=== PATIENT | female | born 1955 | race Caucasian/White ===

== ENCOUNTER 2018-11-21 12:30 | Inpatient (IN) | payer MEDICAID ==
[~2018-11-21] VITALS: Ht 157.5 cm; Wt 152.0 kg
[2018-11-21] MEDS ORDERED: SODIUM CHLORIDE 0.9% 1,000 ML IV ONE (19:12)
[2018-11-21] MEDS ORDERED: ONDANSETRON HCL 4MG/2ML INJ IV STA (19:12)
[2018-11-21] MEDS ORDERED: LEVOFLOXACIN 750MG PREMIX 150 ML IV ONE (19:15)
[2018-11-21] MEDS ORDERED: VANCOMYCIN 1 G PREMIX 200 ML IV ONE (19:15)
[2018-11-21] MEDS ORDERED: HYDROCODONE/ACETAMINOPHEN 10/325MG TABLET PO ONE (19:15)
[2018-11-21 20:08] LABS: BASOPHILS % 0.2 % (0.0-2.0); EOSINOPHILS % 0.7 % (0.0-5.0); HEMATOCRIT. 38.9 % (36.0-48.0); HEMOGLOBIN. 12.9 g/dL (12.0-16.0); LYMPHOCYTES % 15.1 % (20.0-50.0); MEAN CORPUSCULAR HEMOGLOBIN 29.5 pg (28.0-32.0); MEAN CORPUSCULAR VOLUME 88.8 fL (81.0-99.0); MONOCYTES % 8.7 % (2.0-8.0); NEUTROPHILS % 75.3 % (40.0-76.0); PLATELET 217 x1000/uL (130-400); RED BLOOD CELL COUNT 4.38 mill/uL (4.2-5.4); RED CELL DISTRIBUTION WIDTH 15.4 % (11.6-14.6)
[2018-11-21 20:12] LABS: CHLORIDE 107 mEq/L (98-107)
[2018-11-21 20:13] LABS: INR 1.1; PROTHROMBIN TIME 10.7 sec (9.1-11.1)
[2018-11-21] MEDS ORDERED: DIPHENHYDRAMINE 50MG/ML VIAL IV PRN (21:30)
[2018-11-21] MEDS ORDERED: ACETAMINOPHEN 650MG/20.3ML UDC GT PRN (21:30)
[2018-11-21] MEDS ORDERED: ACETAMINOPHEN 325MG TABLET PO PRN (21:30)
[2018-11-21] MEDS ORDERED: DOCUSATE SODIUM 100MG CAPSULE PO PRN (21:30)
[2018-11-21] MEDS ORDERED: ONDANSETRON HCL 4MG/2ML INJ IV PRN (21:30)
[2018-11-21] MEDS ORDERED: GUAIFENESIN 200MG/10ML SUGAR FREE UDC PO PRN (21:30)
[2018-11-21] MEDS ORDERED: ACETAMINOPHEN 650MG SUPP PR PRN (21:30)
[2018-11-21] MEDS ORDERED: NA PHOS,M-B/NA PHOS,DI-BA ENEMA 118ML PR PRN (21:30)
[2018-11-21] MEDS ORDERED: IPRATROPIUM/ALBUTEROL 0.5-3(2.5)MG/3ML NEB INH PRN (21:30)
[2018-11-21] MEDS ORDERED: DEXTROSE 50% WATER 50ML SYRINGE IV PRN (21:30)
[2018-11-21] MEDS ORDERED: CLONIDINE 0.1MG TABLET PO PRN (21:30)
[2018-11-21] MEDS ORDERED: CEFTRIAXONE 1 G PREMIX 50 ML IV SCH (21:30)
[2018-11-21] MEDS ORDERED: HYDROCODONE/ACETAMINOPHEN 5/325MG TABLET PO PRN (21:30)
[2018-11-21 21:46] LABS: CLARITY URINE TURBID (CLEAR); COLOR URINE DARK YELLOW (YELLOW); KETONES URINE TRACE (NEGATIVE); LEUKOCYTE ESTERASE URINE 3+ (NEGATIVE); NITRITE URINE POSITIVE (NEGATIVE); OCCULT BLOOD URINE 1+ (NEGATIVE); PROTEIN URINE TRACE (NEGATIVE); UROBILINOGEN URINE 0.2 E.U./dL (0.2-1.0)
[2018-11-21 22:01] LABS: *AMPHETAMINES SCREEN URINE NEGATIVE (NEGATIVE); *BARBITURATES SCREEN URINE NEGATIVE (NEGATIVE); *BENZODIAZEPINES SCREEN URINE NEGATIVE (NEGATIVE); *COCAINE SCREEN URINE NEGATIVE (NEGATIVE)
[2018-11-21 22:02] LABS: CANNABINOID URINE SCREEN NEGATIVE (NEGATIVE); METHADONE URINE SCREEN NEGATIVE (NEGATIVE); OPIATES URINE SCREEN NEGATIVE (NEGATIVE); PHENCYCLIDINE URINE SCREEN NEGATIVE (NEGATIVE)
[2018-11-22] VITALS: BP 96/45
[2018-11-22] MEDS: HYDROCODONE/ACETAMINOPHEN 10/325MG TABLET PO PRN ×2 (00:32→11:10)
[2018-11-22] MEDS ORDERED: ATOR10TA69 MT (03:07)
[2018-11-22] MEDS ORDERED: INSU100I28 SQ (03:07)
[2018-11-22] MEDS ORDERED: LISI2.5T47 MT (03:07)
[2018-11-22] MEDS ORDERED: METF-416 MT (03:07)
[2018-11-22] MEDS ORDERED: FURO20TA4 MT (03:07)
[2018-11-22 03:08] VITALS: BP 96/45
[2018-11-22] MEDS: SODIUM CHLORIDE 0.9% INJ 3ML FLUSH IVF SCH ×3 (05:46→22:41)
[2018-11-22] MEDS: VANCOMYCIN 1250MG in DEXTROSE 5% WATER 250ML IV SCH (05:47)
[2018-11-22] MEDS: BLOOD SUGAR DIAGNOSTIC STRIP TEST SCH ×4 (07:08→20:48)
[2018-11-22 07:29] LABS: BASOPHILS % 0.2 % (0.0-2.0); EOSINOPHILS % 1.4 % (0.0-5.0); HEMOGLOBIN. 11.8 g/dL (12.0-16.0); LYMPHOCYTES % 22.3 % (20.0-50.0); MEAN CORPUSCULAR HEMOGLOBIN 29.3 pg (28.0-32.0); MEAN CORPUSCULAR VOLUME 89.2 fL (81.0-99.0); MONOCYTES % 12.1 % (2.0-8.0); PLATELET 193 x1000/uL (130-400); RED BLOOD CELL COUNT 4.03 mill/uL (4.2-5.4); RED CELL DISTRIBUTION WIDTH 15.2 % (11.6-14.6)
[2018-11-22 07:47] LABS: CHLORIDE 102 mEq/L (98-107)
[2018-11-22] MEDS ORDERED: CHOL200074 MT (07:49)
[2018-11-22 08:00] VITALS: BP 109/57
[2018-11-22 08:00] LABS: LDL CHOLESTEROL 34 mg/dL (5-100)
[2018-11-22 08:03] LABS: HDL CHOLESTEROL 36 mg/dL (40-59)
[2018-11-22] MEDS: ENOXAPARIN 40MG/0.4ML SYR SUBCUT SCH ×2 (09:01→20:48)
[2018-11-22] MEDS: INSULIN LISPRO 100 UNITS/ML SUBCUT SCH ×5 (09:09→21:00)
[2018-11-22] MEDS ORDERED: *CEFTRIAXONE XX SCH (11:00)
[2018-11-22 12:27] VITALS: BP 105/59
[2018-11-22] MEDS: CEFTRIAXONE 1 G PREMIX 50 ML IV SCH (13:24)
[2018-11-22] MEDS: FUROSEMIDE 40MG TABLET PO SCH (14:45)
[2018-11-22] MEDS: ALLOPURINOL 100 MG TABLET PO SCH (17:52)
[2018-11-22 18:00] VITALS: BP 96/50
[2018-11-22 20:00] VITALS: BP 123/77
[2018-11-22] MEDS: BACITRACIN 15GM TUBE TOP SCH ×2 (21:30→22:42)
[2018-11-23] VITALS: BP 136/72
[2018-11-23] MEDS: VANCOMYCIN 1250MG in DEXTROSE 5% WATER 250ML IV SCH ×4 (00:39→14:49)
[2018-11-23] MEDS: HYDROCODONE/ACETAMINOPHEN 10/325MG TABLET PO PRN ×2 (00:46→09:11)
[2018-11-23 04:00] VITALS: BP 116/48
[2018-11-23] MEDS: BLOOD SUGAR DIAGNOSTIC STRIP TEST SCH ×4 (06:53→21:50)
[2018-11-23] MEDS: SODIUM CHLORIDE 0.9% INJ 3ML FLUSH IVF SCH ×3 (06:53→21:54)
[2018-11-23 08:00] VITALS: BP 130/74
[2018-11-23] MEDS: FUROSEMIDE 40MG TABLET PO SCH (08:07)
[2018-11-23] MEDS: ALLOPURINOL 100 MG TABLET PO SCH (08:07)
[2018-11-23] MEDS: ENOXAPARIN 40MG/0.4ML SYR SUBCUT SCH ×2 (08:08→21:54)
[2018-11-23] MEDS: INSULIN LISPRO 100 UNITS/ML SUBCUT SCH ×4 (09:07→22:20)
[2018-11-23 12:00] VITALS: BP 138/76
[2018-11-23 12:15] LABS: BASOPHILS % 0.1 % (0.0-2.0); HEMATOCRIT. 37.7 % (36.0-48.0); HEMOGLOBIN. 12.3 g/dL (12.0-16.0); LYMPHOCYTES % 17.6 % (20.0-50.0); MEAN CORPUSCULAR HEMOGLOBIN 29.1 pg (28.0-32.0); MEAN PLATELET VOLUME 8.2 fl (7.4-10.4); NEUTROPHILS % 71.3 % (40.0-76.0); PLATELET 211 x1000/uL (130-400); RED BLOOD CELL COUNT 4.23 mill/uL (4.2-5.4); RED CELL DISTRIBUTION WIDTH 15.2 % (11.6-14.6)
[2018-11-23 12:26] LABS: CHLORIDE 98 mEq/L (98-107)
[2018-11-23 16:00] VITALS: BP 132/78
[2018-11-23] MEDS: BACITRACIN 15GM TUBE TOP SCH (16:20)
[2018-11-23 20:00] VITALS: BP 99/56
[2018-11-23] MEDS: MAGNESIUM/ALUMINUM HYDROXIDE/SIMETHICONE 30ML UDC PO PRN (21:42)
[2018-11-24] VITALS: BP 117/57
[2018-11-24 05:04] LABS: VANCOMYCIN TROUGH 6.4 ug/mL (5.0-10.0)
[2018-11-24] MEDS: VANCOMYCIN 1250MG in DEXTROSE 5% WATER 250ML IV SCH (06:39)
[2018-11-24] MEDS: SODIUM CHLORIDE 0.9% INJ 3ML FLUSH IVF SCH ×2 (06:55→14:00)
[2018-11-24] MEDS: BLOOD SUGAR DIAGNOSTIC STRIP TEST SCH ×4 (07:51→21:00)
[2018-11-24 08:00] VITALS: BP 102/50
[2018-11-24] MEDS: FUROSEMIDE 40MG TABLET PO SCH (08:30)
[2018-11-24] MEDS: ALLOPURINOL 100 MG TABLET PO SCH (08:51)
[2018-11-24] MEDS: ENOXAPARIN 40MG/0.4ML SYR SUBCUT SCH (08:51)
[2018-11-24] MEDS: INSULIN LISPRO 100 UNITS/ML SUBCUT SCH ×3 (09:00→19:32)
[2018-11-24] MEDS ORDERED: BISACODYL 10MG SUPP PR PRN (11:45)
[2018-11-24] MEDS ORDERED: ONDANSETRON HCL 4MG/2ML INJ IV PRN (11:45)
[2018-11-24] MEDS ORDERED: BISACODYL 5MG TABLET PO PRN (11:45)
[2018-11-24 12:00] VITALS: BP 104/73
[2018-11-24] MEDS: CEFTRIAXONE 1 G PREMIX 50 ML IV SCH (14:26)
[2018-11-24] MEDS: MAGNESIUM/ALUMINUM HYDROXIDE/SIMETHICONE 30ML UDC PO PRN (14:49)
[2018-11-24] MEDS: METOCLOPRAMIDE HCL 10MG/2ML VIAL IV SCH (18:00)
[2018-11-24 20:00] VITALS: BP 110/51
[2018-11-24] MEDS: HYDROCODONE/ACETAMINOPHEN 10/325MG TABLET PO PRN (21:25)
[2018-11-24] MEDS ORDERED: SODIUM CHLORIDE 0.45% 1,000 ML IV SCH (22:30)
[2018-11-25] VITALS: BP 127/70
[2018-11-25] MEDS: PANTOPRAZOLE SODIUM 40 MG/VIAL IV SCH ×2 (00:38→12:30)
[2018-11-25] MEDS: METOCLOPRAMIDE HCL 10MG/2ML VIAL IV SCH ×3 (00:38→12:30)
[2018-11-25] MEDS: SODIUM CHLORIDE 0.9% INJ 3ML FLUSH IVF SCH ×3 (00:39→22:00)
[2018-11-25] MEDS: INSULIN LISPRO 100 UNITS/ML SUBCUT SCH ×5 (00:54→22:36)
[2018-11-25] MEDS: VANCOMYCIN 1250MG in DEXTROSE 5% WATER 250ML IV SCH ×2 (01:03→06:12)
[2018-11-25 04:00] VITALS: BP 113/60
[2018-11-25] MEDS: BLOOD SUGAR DIAGNOSTIC STRIP TEST SCH ×3 (06:12→21:00)
[2018-11-25] MEDS: HYDROCODONE/ACETAMINOPHEN 10/325MG TABLET PO PRN ×2 (06:31→12:38)
[2018-11-25] MEDS: ALBUTEROL (0.083%) 2.5MG/3ML NEB HHN SCH ×3 (07:40→22:45)
[2018-11-25 08:00] VITALS: BP 121/68
[2018-11-25] MEDS: FUROSEMIDE 40MG TABLET PO SCH (09:13)
[2018-11-25] MEDS: ENOXAPARIN 40MG/0.4ML SYR SUBCUT SCH ×3 (09:13→22:15)
[2018-11-25 12:00] VITALS: BP 122/77
[2018-11-25] MEDS: ALLOPURINOL 100 MG TABLET PO SCH (12:30)
[2018-11-25] MEDS: CEFTRIAXONE 1 G PREMIX 50 ML IV SCH (12:30)
[2018-11-25] MEDS ORDERED: CEFTRIAXONE 2 G PREMIX 50 ML IV SCH (12:45)
[2018-11-25 20:00] VITALS: BP 133/61
[2018-11-25] MEDS ORDERED: VANCOMYCIN 1250MG in DEXTROSE 5% WATER 250ML IV SCH (21:00)
[2018-11-25] MEDS ORDERED: CEFTRIAXONE 2 G in DEXTROSE 5% WATER 50 ML IV SCH (21:00)
[2018-11-25] MEDS ORDERED: CEFTRIAXONE 2 G in DEXTROSE 5% WATER 50 ML IV NR (23:30)
[2018-11-26] VITALS: BP 121/63
[2018-11-26] MEDS: METOCLOPRAMIDE HCL 10MG/2ML VIAL IV SCH ×5 (01:30→23:42)
[2018-11-26] MEDS: ALBUTEROL (0.083%) 2.5MG/3ML NEB HHN SCH ×4 (02:50→19:00)
[2018-11-26 04:00] VITALS: BP 113/57
[2018-11-26] MEDS: SODIUM CHLORIDE 0.9% INJ 3ML FLUSH IVF SCH ×3 (06:00→23:38)
[2018-11-26] MEDS: BLOOD SUGAR DIAGNOSTIC STRIP TEST SCH ×4 (06:54→21:00)
[2018-11-26 08:00] VITALS: BP 116/68
[2018-11-26] MEDS: ALLOPURINOL 100 MG TABLET PO SCH (08:55)
[2018-11-26] MEDS: ENOXAPARIN 40MG/0.4ML SYR SUBCUT SCH ×2 (08:55→23:37)
[2018-11-26] MEDS: FAMOTIDINE 20MG/2ML VIAL IV SCH ×2 (08:56→23:37)
[2018-11-26] MEDS: FUROSEMIDE 40MG TABLET PO SCH (08:56)
[2018-11-26] MEDS: INSULIN LISPRO 100 UNITS/ML SUBCUT SCH ×3 (08:58→18:04)
[2018-11-26] MEDS: BACITRACIN 15GM TUBE TOP SCH ×2 (09:08→09:09)
[2018-11-26] MEDS: LEVOFLOXACIN 750MG PREMIX 150 ML IV SCH (10:38)
[2018-11-26 12:00] VITALS: BP 121/67
[2018-11-26 16:00] VITALS: BP 120/73
[2018-11-26 20:00] VITALS: BP 99/53
[2018-11-26] MEDS ORDERED: CEFTRIAXONE 2 G in DEXTROSE 5% WATER 50 ML IV SCH (21:00)
[2018-11-26 22:36] LABS: BASOPHILS % 0.3 % (0.0-2.0); EOSINOPHILS % 2.9 % (0.0-5.0); HEMATOCRIT. 37.8 % (36.0-48.0); HEMOGLOBIN. 12.4 g/dL (12.0-16.0); LYMPHOCYTES % 16.3 % (20.0-50.0); MEAN CORPUSCULAR HEMOGLOBIN 29.1 pg (28.0-32.0); MEAN CORPUSCULAR VOLUME 88.7 fL (81.0-99.0); MONOCYTES % 9.8 % (2.0-8.0); NEUTROPHILS % 70.7 % (40.0-76.0); PLATELET 260 x1000/uL (130-400); RED BLOOD CELL COUNT 4.27 mill/uL (4.2-5.4); RED CELL DISTRIBUTION WIDTH 14.6 % (11.6-14.6)
[2018-11-26 22:48] LABS: CHLORIDE 99 mEq/L (98-107)
[2018-11-27] VITALS (7 sets, daily range): BP systolic 100–122; BP diastolic 52–67
[2018-11-27] MEDS: INSULIN LISPRO 100 UNITS/ML SUBCUT SCH ×3 (00:01→14:08)
[2018-11-27] MEDS: ALBUTEROL (0.083%) 2.5MG/3ML NEB HHN SCH (03:00)
[2018-11-27] MEDS: METOCLOPRAMIDE HCL 10MG/2ML VIAL IV SCH ×2 (07:05→14:08)
[2018-11-27] MEDS: BLOOD SUGAR DIAGNOSTIC STRIP TEST SCH ×2 (07:05→12:00)
[2018-11-27] MEDS: FUROSEMIDE 40MG TABLET PO SCH (08:53)
[2018-11-27] MEDS: ALLOPURINOL 100 MG TABLET PO SCH (08:53)
[2018-11-27] MEDS: FAMOTIDINE 20MG/2ML VIAL IV SCH (08:53)
[2018-11-27] MEDS: LEVOFLOXACIN 750MG PREMIX 150 ML IV SCH (08:54)
[2018-11-27] MEDS: BACITRACIN 15GM TUBE TOP SCH (09:00)
[2018-11-27] MEDS: ENOXAPARIN 40MG/0.4ML SYR SUBCUT SCH (09:00)
[2018-11-27] MEDS ORDERED: FURO-151 MT (12:42)
[2018-11-27] MEDS: SODIUM CHLORIDE 0.9% INJ 3ML FLUSH IVF SCH ×2 (14:00→14:09)
== END 2018-11-27 18:33 | disposition home or self-care (01) | DRG 197 ==
LOC: ER 12:30 → 6EST 21:15 → EDBEDREQ 21:17 → ENRESERV 21:25
PROVIDERS: ADMIT Family Medicine; ATTEND Family Medicine
PROC: 0JBR0ZZ Excision of Left Foot Subcutaneous Tissue and Fascia, Open Approach (ICD-10-PCS; principal; 2018-11-25)
PROC: 0JBQ0ZZ Excision of Right Foot Subcutaneous Tissue and Fascia, Open Approach (ICD-10-PCS; 2018-11-25)
DX: I83.018 Varicose veins of right lower extremity with ulcer other part of lower leg (principal); E11.51 Type 2 diabetes mellitus with diabetic peripheral angiopathy without gangrene; E11.43 Type 2 diabetes mellitus with diabetic autonomic (poly)neuropathy; I27.20 Pulmonary hypertension, unspecified; E66.01 Morbid (severe) obesity due to excess calories; L03.115 Cellulitis of right lower limb; B95.61 Methicillin susceptible Staphylococcus aureus infection as the cause of diseases classified elsewhere; B96.5 Pseudomonas (aeruginosa) (mallei) (pseudomallei) as the cause of diseases classified elsewhere; I10 Essential (primary) hypertension; R60.0 Localized edema; R26.81 Unsteadiness on feet; N39.0 Urinary tract infection, site not specified; I87.8 Other specified disorders of veins; M10.9 Gout, unspecified; Z88.0 Allergy status to penicillin; Z68.44 Body mass index [BMI] 60.0-69.9, adult; Z79.84 Long term (current) use of oral hypoglycemic drugs; Z79.899 Other long term (current) drug therapy; I83.028 Varicose veins of left lower extremity with ulcer other part of lower leg
CPT/HCPCS: 36415; 71045; 73590; 74018; 74176; 80048; 80061; 80202; 80305; 82962; 83605; 83970; 84145; 84443; 84484; 84550; 87070; 87077; 87186; 93005; 93923; 93970; 96365; 96366; 96368; 96375; 97162; 97530; 99285; A6261; C1893; C9113; J0696; J1200; J1650; J1815; J1956; J2405; J2765; J3370; J3490; J7030; J7060; J7611

== ENCOUNTER 2018-11-28 13:29 | Inpatient (IN) | payer MEDICAID ==
[~2018-11-28] VITALS: Ht 165.1 cm; Wt 149.2 kg
[~2018-11-28 13:29] MED LIST: ATOR10TA69 MT; CHOL200074 MT; FURO-151 MT; INSU100I28 SQ; LISI2.5T47 MT; METF-416 MT
[2018-11-28 17:11] LABS: BASOPHILS % 0.2 % (0.0-2.0); EOSINOPHILS % 1.5 % (0.0-5.0); HEMATOCRIT. 39.5 % (36.0-48.0); LYMPHOCYTES % 11.4 % (20.0-50.0); MEAN CORPUSCULAR HEMOGLOBIN 28.9 pg (28.0-32.0); MEAN CORPUSCULAR VOLUME 88.1 fL (81.0-99.0); MEAN PLATELET VOLUME 8.4 fl (7.4-10.4); MONOCYTES % 8.4 % (2.0-8.0); NEUTROPHILS % 78.5 % (40.0-76.0); PLATELET 312 x1000/uL (130-400); RED BLOOD CELL COUNT 4.48 mill/uL (4.2-5.4)
[2018-11-28 17:16] LABS: CHLORIDE 98 mEq/L (98-107)
[2018-11-28 17:26] LABS: INR 1.1
[2018-11-28] MEDS ORDERED: DEXTROSE 50% WATER 50ML SYRINGE IV PRN (19:30)
[2018-11-28 20:00] VITALS: BP 98/64
[2018-11-28] MEDS ORDERED: ACETAMINOPHEN 650MG/20.3ML UDC GT PRN (20:00)
[2018-11-28] MEDS ORDERED: IPRATROPIUM/ALBUTEROL 0.5-3(2.5)MG/3ML NEB INH PRN (20:00)
[2018-11-28] MEDS ORDERED: CLONIDINE 0.1MG TABLET PO PRN (20:00)
[2018-11-28] MEDS ORDERED: NA PHOS,M-B/NA PHOS,DI-BA ENEMA 118ML PR PRN (20:00)
[2018-11-28] MEDS ORDERED: DOCUSATE SODIUM 100MG CAPSULE PO PRN (20:00)
[2018-11-28] MEDS ORDERED: DIPHENHYDRAMINE 50MG/ML VIAL IV PRN (20:00)
[2018-11-28] MEDS ORDERED: ACETAMINOPHEN 650MG SUPP PR PRN (20:00)
[2018-11-28] MEDS ORDERED: ONDANSETRON HCL 4MG/2ML INJ IV PRN (20:00)
[2018-11-28] MEDS ORDERED: GUAIFENESIN 200MG/10ML SUGAR FREE UDC PO PRN (20:00)
[2018-11-28 20:39] LABS: CLARITY URINE CLEAR (CLEAR); COLOR URINE YELLOW (YELLOW); KETONES URINE NEGATIVE (NEGATIVE); LEUKOCYTE ESTERASE URINE TRACE (NEGATIVE); NITRITE URINE NEGATIVE (NEGATIVE); OCCULT BLOOD URINE NEGATIVE (NEGATIVE); PROTEIN URINE NEGATIVE (NEGATIVE); SPECIFIC GRAVITY URINE 1.017 (1.005-1.030); UROBILINOGEN URINE 0.2 E.U./dL (0.2-1.0)
[2018-11-28 20:53] LABS: *BENZODIAZEPINES SCREEN URINE NEGATIVE (NEGATIVE); *COCAINE SCREEN URINE NEGATIVE (NEGATIVE); METHADONE URINE SCREEN NEGATIVE (NEGATIVE)
[2018-11-28 20:54] LABS: *AMPHETAMINES SCREEN URINE NEGATIVE (NEGATIVE); *BARBITURATES SCREEN URINE NEGATIVE (NEGATIVE); CANNABINOID URINE SCREEN NEGATIVE (NEGATIVE); OPIATES URINE SCREEN PRESUMTIVE POSITIVE (NEGATIVE); PHENCYCLIDINE URINE SCREEN NEGATIVE (NEGATIVE)
[2018-11-28] MEDS: BLOOD SUGAR DIAGNOSTIC STRIP TEST SCH (22:00)
[2018-11-29] MEDS: INSULIN LISPRO 100 UNITS/ML SUBCUT SCH ×5 (00:11→21:32)
[2018-11-29] MEDS: MAGNESIUM/ALUMINUM HYDROXIDE/SIMETHICONE 30ML UDC PO PRN (00:32)
[2018-11-29 03:41] VITALS: BP 98/64
[2018-11-29] MEDS: BLOOD SUGAR DIAGNOSTIC STRIP TEST SCH ×4 (06:33→20:38)
[2018-11-29 07:38] LABS: BASOPHILS % 0.3 % (0.0-2.0); EOSINOPHILS % 2.2 % (0.0-5.0); HEMATOCRIT. 38.9 % (36.0-48.0); HEMOGLOBIN. 12.8 g/dL (12.0-16.0); LYMPHOCYTES % 16.1 % (20.0-50.0); MEAN CORPUSCULAR HEMOGLOBIN 28.8 pg (28.0-32.0); MEAN CORPUSCULAR VOLUME 87.8 fL (81.0-99.0); MEAN PLATELET VOLUME 8.1 fl (7.4-10.4); MONOCYTES % 9.1 % (2.0-8.0); NEUTROPHILS % 72.3 % (40.0-76.0); PLATELET 324 x1000/uL (130-400); RED BLOOD CELL COUNT 4.43 mill/uL (4.2-5.4); RED CELL DISTRIBUTION WIDTH 15.4 % (11.6-14.6)
[2018-11-29 07:51] LABS: CHLORIDE 98 mEq/L (98-107)
[2018-11-29 08:00] VITALS: BP 132/72
[2018-11-29 08:03] LABS: LDL CHOLESTEROL 65 mg/dL (5-100)
[2018-11-29 08:04] LABS: HDL CHOLESTEROL 24 mg/dL (40-59)
[2018-11-29] MEDS ORDERED: ALLOPURINOL 100 MG TABLET PO SCH ×2 (11:30→17:00)
[2018-11-29] MEDS ORDERED: MEDICATION NOT ON FORMULARY EA (Metformin Hcl 1 TAB) MT SCH (11:30)
[2018-11-29 12:00] VITALS: BP 106/50
[2018-11-29] MEDS: METFORMIN HCL 500MG TABLET PO SCH (12:23)
[2018-11-29] MEDS: SODIUM CHLORIDE 0.9% INJ 3ML FLUSH IVF SCH ×2 (14:00→20:38)
[2018-11-29] MEDS: LEVOFLOXACIN 500MG TABLET PO SCH (15:24)
[2018-11-29 16:00] VITALS: BP 110/98
[2018-11-29 20:00] VITALS: BP 115/63
[2018-11-29] MEDS: ALLOPURINOL 100 MG TABLET PO SCH (20:38)
[2018-11-30] VITALS: BP 117/71
[2018-11-30 04:00] VITALS: BP 127/67
[2018-11-30] MEDS: BLOOD SUGAR DIAGNOSTIC STRIP TEST SCH ×4 (06:50→21:00)
[2018-11-30 08:00] VITALS: BP 109/60
[2018-11-30] MEDS: METFORMIN HCL 500MG TABLET PO SCH (08:49)
[2018-11-30] MEDS: ALLOPURINOL 100 MG TABLET PO SCH ×2 (08:49→17:11)
[2018-11-30] MEDS: INSULIN LISPRO 100 UNITS/ML SUBCUT SCH ×4 (08:54→22:39)
[2018-11-30] MEDS: LEVOFLOXACIN 500MG TABLET PO SCH (11:46)
[2018-11-30 12:00] VITALS: BP 112/61
[2018-11-30] MEDS: SODIUM CHLORIDE 0.9% INJ 3ML FLUSH IVF SCH ×2 (14:00→21:58)
[2018-11-30 16:00] VITALS: BP 116/66
[2018-11-30 20:00] VITALS: BP 117/60
[2018-12-01] VITALS: BP 118/70
[2018-12-01 04:00] VITALS: BP 100/61
[2018-12-01] MEDS: SODIUM CHLORIDE 0.9% INJ 3ML FLUSH IVF SCH ×3 (06:05→21:49)
[2018-12-01] MEDS: BLOOD SUGAR DIAGNOSTIC STRIP TEST SCH ×4 (07:47→21:43)
[2018-12-01 08:00] VITALS: BP 130/82
[2018-12-01] MEDS: ALLOPURINOL 100 MG TABLET PO SCH ×2 (08:33→17:55)
[2018-12-01] MEDS: METFORMIN HCL 500MG TABLET PO SCH (08:33)
[2018-12-01] MEDS: INSULIN LISPRO 100 UNITS/ML SUBCUT SCH ×4 (08:52→21:42)
[2018-12-01] MEDS: LEVOFLOXACIN 500MG TABLET PO SCH (11:13)
[2018-12-01 12:00] VITALS: BP 102/66
[2018-12-01 13:26] LABS: BASOPHILS % 0.3 % (0.0-2.0); HEMATOCRIT. 42.4 % (36.0-48.0); HEMOGLOBIN. 13.8 g/dL (12.0-16.0); MEAN CORPUSCULAR HEMOGLOBIN 28.8 pg (28.0-32.0); MEAN CORPUSCULAR VOLUME 88.4 fL (81.0-99.0); MEAN PLATELET VOLUME 8.2 fl (7.4-10.4); MONOCYTES % 9.1 % (2.0-8.0); NEUTROPHILS % 69.6 % (40.0-76.0); PLATELET 342 x1000/uL (130-400); RED CELL DISTRIBUTION WIDTH 15.3 % (11.6-14.6)
[2018-12-01 13:42] LABS: CHLORIDE 98 mEq/L (98-107)
[2018-12-01 16:00] VITALS: BP 100/54
[2018-12-01 20:00] VITALS: BP 104/55
[2018-12-01] MEDS: ENOXAPARIN 40MG/0.4ML SYR SUBCUT SCH (21:43)
[2018-12-01] MEDS: COLCHICINE 0.6MG TABLET PO SCH (21:43)
[2018-12-01] MEDS: ACETAMINOPHEN 325MG TABLET PO PRN (23:45)
[2018-12-02 04:00] VITALS: BP 120/71
[2018-12-02] MEDS: BLOOD SUGAR DIAGNOSTIC STRIP TEST SCH ×4 (05:40→20:53)
[2018-12-02] MEDS: SODIUM CHLORIDE 0.9% INJ 3ML FLUSH IVF SCH ×3 (05:41→21:08)
[2018-12-02] MEDS ORDERED: POTASSIUM CHLORIDE 20MEQ TABLET SR PO ONE (07:30)
[2018-12-02] MEDS ORDERED: MAGNESIUM GLUCONATE 500MG TABLET PO SCH (07:30)
[2018-12-02 08:00] VITALS: BP 109/67
[2018-12-02] MEDS: COLCHICINE 0.6MG TABLET PO SCH ×2 (08:09→20:39)
[2018-12-02] MEDS: METFORMIN HCL 500MG TABLET PO SCH (08:09)
[2018-12-02] MEDS: ALLOPURINOL 100 MG TABLET PO SCH ×2 (08:09→17:35)
[2018-12-02] MEDS: ENOXAPARIN 40MG/0.4ML SYR SUBCUT SCH ×2 (08:09→20:39)
[2018-12-02] MEDS: INSULIN LISPRO 100 UNITS/ML SUBCUT SCH ×4 (08:20→20:57)
[2018-12-02] MEDS: LEVOFLOXACIN 500MG TABLET PO SCH (10:30)
[2018-12-02 10:50] LABS: BG BASE EXCESS 8.9 mmol/L (-2.0-2.0); BG CARBOXYHEMOGLOBIN 2.3 % (0.5-1.5); BG DEOXYHEMOGLOBIN 5.9 % (0.0-5.0); BG FRACTION INSPIRED OXYGEN 32; BG HCO3 ACT 33.3 mmol/L (22.0-26.0); BG METHEMOGLOBIN 0.1 % (0.0-1.5); BG OXYHEMOGLOBIN 91.7 % (94.0-97.0); BG PCO2 44.4 mmHg (35.0-45.0); BG PH 7.493 (7.350-7.450); BG PO2 68.7 mmHg (75.0-100.0); BG SAMPLE SITE LEFT BRACHIAL; BG TOTAL HEMOGLOBIN 14.2 g/dL (12.0-18.0); BG VENT MODE NASAL CANNULA
[2018-12-02 12:17] VITALS: BP 114/74
[2018-12-02 15:17] LABS: HEMATOCRIT. 41.4 % (36.0-48.0); HEMOGLOBIN. 13.5 g/dL (12.0-16.0); MEAN CORPUSCULAR HEMOGLOBIN 28.8 pg (28.0-32.0); MEAN CORPUSCULAR VOLUME 88.2 fL (81.0-99.0); MEAN PLATELET VOLUME 8.2 fl (7.4-10.4); PLATELET 354 x1000/uL (130-400); RED BLOOD CELL COUNT 4.69 mill/uL (4.2-5.4); RED CELL DISTRIBUTION WIDTH 15.4 % (11.6-14.6)
[2018-12-02 15:19] LABS: CHLORIDE 98 mEq/L (98-107)
[2018-12-02 16:00] VITALS: BP 114/57
[2018-12-02 16:24] LABS: PLATELET ESTIMATE NORMAL
[2018-12-02 20:00] VITALS: BP 127/66
[2018-12-03] VITALS: BP 123/68
[2018-12-03 04:00] VITALS: BP 115/75
[2018-12-03] MEDS: SODIUM CHLORIDE 0.9% INJ 3ML FLUSH IVF SCH ×3 (06:21→21:03)
[2018-12-03] MEDS: METOCLOPRAMIDE HCL 10MG/2ML VIAL IV SCH ×4 (06:22→17:04)
[2018-12-03] MEDS: BLOOD SUGAR DIAGNOSTIC STRIP TEST SCH ×4 (06:57→21:24)
[2018-12-03 07:46] VITALS: BP 139/85
[2018-12-03] MEDS: COLCHICINE 0.6MG TABLET PO SCH ×2 (08:49→21:01)
[2018-12-03] MEDS: ALLOPURINOL 100 MG TABLET PO SCH ×2 (08:49→16:49)
[2018-12-03] MEDS: METFORMIN HCL 500MG TABLET PO SCH (08:49)
[2018-12-03] MEDS: ENOXAPARIN 40MG/0.4ML SYR SUBCUT SCH ×2 (08:51→21:01)
[2018-12-03] MEDS: INSULIN LISPRO 100 UNITS/ML SUBCUT SCH ×4 (09:04→21:30)
[2018-12-03] MEDS: LEVOFLOXACIN 500MG TABLET PO SCH (11:36)
[2018-12-03 12:00] VITALS: BP 127/64
[2018-12-03 16:00] VITALS: BP 130/68
[2018-12-03 20:00] VITALS: BP 115/59
[2018-12-03] MEDS: DICLOFENAC SODIUM 50MG EC TABLET PO SCH (21:01)
[2018-12-04] VITALS: BP 110/55
[2018-12-04 04:00] VITALS: BP 100/55
[2018-12-04] MEDS: METOCLOPRAMIDE HCL 10MG/2ML VIAL IV SCH ×4 (06:47→17:43)
[2018-12-04] MEDS: BLOOD SUGAR DIAGNOSTIC STRIP TEST SCH ×4 (06:48→21:00)
[2018-12-04] MEDS: SODIUM CHLORIDE 0.9% INJ 3ML FLUSH IVF SCH ×2 (06:48→14:00)
[2018-12-04 08:00] VITALS: BP 146/76
[2018-12-04] MEDS: ALLOPURINOL 100 MG TABLET PO SCH ×2 (09:00→17:38)
[2018-12-04] MEDS: COLCHICINE 0.6MG TABLET PO SCH ×2 (09:00→21:31)
[2018-12-04] MEDS: DICLOFENAC SODIUM 50MG EC TABLET PO SCH ×2 (09:00→21:31)
[2018-12-04] MEDS: METFORMIN HCL 500MG TABLET PO SCH (09:00)
[2018-12-04] MEDS: ENOXAPARIN 40MG/0.4ML SYR SUBCUT SCH ×2 (09:00→21:31)
[2018-12-04] MEDS: LEVOFLOXACIN 500MG TABLET PO SCH (11:00)
[2018-12-04 12:00] VITALS: BP 146/76
[2018-12-04] MEDS: ACETAMINOPHEN 325MG TABLET PO PRN (12:29)
[2018-12-04] MEDS: INSULIN LISPRO 100 UNITS/ML SUBCUT SCH ×3 (13:37→21:00)
[2018-12-04 16:00] VITALS: BP 120/54
[2018-12-04 20:00] VITALS: BP 100/51
[2018-12-05] VITALS: BP 111/59
[2018-12-05] MEDS: MAGNESIUM/ALUMINUM HYDROXIDE/SIMETHICONE 30ML UDC PO PRN (02:49)
[2018-12-05 04:00] VITALS: BP 103/47
[2018-12-05] MEDS: METOCLOPRAMIDE HCL 10MG/2ML VIAL IV SCH ×4 (06:00→18:00)
[2018-12-05] MEDS: SODIUM CHLORIDE 0.9% INJ 3ML FLUSH IVF SCH ×4 (06:00→23:05)
[2018-12-05] MEDS: BLOOD SUGAR DIAGNOSTIC STRIP TEST SCH ×4 (06:48→21:00)
[2018-12-05] MEDS: INSULIN LISPRO 100 UNITS/ML SUBCUT SCH ×4 (07:23→21:00)
[2018-12-05 08:00] VITALS: BP 122/64
[2018-12-05] MEDS: DICLOFENAC SODIUM 50MG EC TABLET PO SCH ×2 (09:00→23:02)
[2018-12-05] MEDS: METFORMIN HCL 500MG TABLET PO SCH (09:00)
[2018-12-05] MEDS: ALLOPURINOL 100 MG TABLET PO SCH ×2 (09:00→17:00)
[2018-12-05] MEDS: COLCHICINE 0.6MG TABLET PO SCH ×2 (09:00→23:02)
[2018-12-05] MEDS: ENOXAPARIN 40MG/0.4ML SYR SUBCUT SCH ×2 (10:13→23:01)
[2018-12-05] MEDS: LEVOFLOXACIN 500MG TABLET PO SCH (11:00)
[2018-12-05] MEDS: ACETAMINOPHEN 325MG TABLET PO PRN (11:01)
[2018-12-05 20:00] VITALS: BP 112/62
[2018-12-05] MEDS ORDERED: METHYLPREDNISOLONE ACETATE 40MG/ML VIAL IM NR (21:30)
[2018-12-06] MEDS: SODIUM CHLORIDE 0.9% INJ 3ML FLUSH IVF SCH (06:00)
[2018-12-06] MEDS: METOCLOPRAMIDE HCL 10MG/2ML VIAL IV SCH ×5 (06:00→17:44)
[2018-12-06] MEDS: BLOOD SUGAR DIAGNOSTIC STRIP TEST SCH ×4 (07:20→21:00)
[2018-12-06 08:00] VITALS: BP 124/68
[2018-12-06] MEDS: COLCHICINE 0.6MG TABLET PO SCH (08:57)
[2018-12-06] MEDS: METFORMIN HCL 500MG TABLET PO SCH (08:57)
[2018-12-06] MEDS: DICLOFENAC SODIUM 50MG EC TABLET PO SCH (08:57)
[2018-12-06] MEDS: ENOXAPARIN 40MG/0.4ML SYR SUBCUT SCH (08:57)
[2018-12-06] MEDS: ALLOPURINOL 100 MG TABLET PO SCH ×2 (08:57→17:13)
[2018-12-06] MEDS: INSULIN LISPRO 100 UNITS/ML SUBCUT SCH ×3 (09:09→17:45)
[2018-12-06] MEDS: LEVOFLOXACIN 500MG TABLET PO SCH (11:43)
[2018-12-06 12:00] VITALS: BP 111/61
[2018-12-06 16:00] VITALS: BP 125/70
[2018-12-06 20:00] VITALS: BP 100/42
[2018-12-07] VITALS: BP 114/41
[2018-12-07] MEDS: INSULIN LISPRO 100 UNITS/ML SUBCUT SCH ×5 (00:02→20:58)
[2018-12-07] MEDS: COLCHICINE 0.6MG TABLET PO SCH ×3 (00:03→20:46)
[2018-12-07] MEDS: DICLOFENAC SODIUM 50MG EC TABLET PO SCH ×3 (00:03→20:46)
[2018-12-07] MEDS: ENOXAPARIN 40MG/0.4ML SYR SUBCUT SCH ×3 (00:04→20:47)
[2018-12-07] MEDS: METOCLOPRAMIDE HCL 10MG/2ML VIAL IV SCH ×4 (06:00→18:00)
[2018-12-07 06:28] LABS: BASOPHILS % 0.8 % (0.0-2.0); EOSINOPHILS % 3.8 % (0.0-5.0); HEMATOCRIT. 36.9 % (36.0-48.0); LYMPHOCYTES % 17.3 % (20.0-50.0); MEAN CORPUSCULAR HEMOGLOBIN 28.6 pg (28.0-32.0); MEAN CORPUSCULAR VOLUME 87.9 fL (81.0-99.0); MONOCYTES % 10.3 % (2.0-8.0); NEUTROPHILS % 67.8 % (40.0-76.0); PLATELET 350 x1000/uL (130-400); RED CELL DISTRIBUTION WIDTH 14.9 % (11.6-14.6)
[2018-12-07] MEDS: BLOOD SUGAR DIAGNOSTIC STRIP TEST SCH ×3 (06:49→17:13)
[2018-12-07] MEDS: SODIUM CHLORIDE 0.9% INJ 3ML FLUSH IVF SCH ×2 (06:52→14:00)
[2018-12-07 08:00] VITALS: BP 109/58
[2018-12-07] MEDS: METFORMIN HCL 500MG TABLET PO SCH (09:25)
[2018-12-07] MEDS: ALLOPURINOL 100 MG TABLET PO SCH ×2 (09:26→17:14)
[2018-12-07 12:11] VITALS: BP 105/52
[2018-12-07 16:00] VITALS: BP 103/50
[2018-12-07 20:09] VITALS: BP 109/61
[2018-12-08] VITALS: BP 118/80
[2018-12-08] MEDS: SODIUM CHLORIDE 0.9% INJ 3ML FLUSH IVF SCH ×4 (00:35→22:26)
[2018-12-08] MEDS: METOCLOPRAMIDE HCL 10MG/2ML VIAL IV SCH ×5 (06:00→23:49)
[2018-12-08] MEDS: BLOOD SUGAR DIAGNOSTIC STRIP TEST SCH ×4 (07:20→21:00)
[2018-12-08 08:00] VITALS: BP 110/65
[2018-12-08] MEDS: COLCHICINE 0.6MG TABLET PO SCH ×3 (08:46→10:34)
[2018-12-08] MEDS: ALLOPURINOL 100 MG TABLET PO SCH ×3 (08:47→19:07)
[2018-12-08] MEDS: ENOXAPARIN 40MG/0.4ML SYR SUBCUT SCH ×2 (08:47→22:26)
[2018-12-08] MEDS: DICLOFENAC SODIUM 50MG EC TABLET PO SCH (08:47)
[2018-12-08] MEDS: METFORMIN HCL 500MG TABLET PO SCH (08:47)
[2018-12-08] MEDS: INSULIN LISPRO 100 UNITS/ML SUBCUT SCH ×4 (08:57→21:00)
[2018-12-08 12:00] VITALS: BP 94/51
[2018-12-08 16:00] VITALS: BP 95/60
[2018-12-08] MEDS ORDERED: PANTOPRAZOLE 40MG DR TABLET PO NR (17:30)
[2018-12-08 20:00] VITALS: BP 102/63
[2018-12-08] MEDS: PREDNISONE 5MG TABLET PO SCH (23:48)
[2018-12-09] MEDS: BLOOD SUGAR DIAGNOSTIC STRIP TEST SCH ×4 (07:20→21:00)
[2018-12-09] MEDS: INSULIN LISPRO 100 UNITS/ML SUBCUT SCH ×4 (07:50→21:00)
[2018-12-09 08:00] VITALS: BP 111/69
[2018-12-09] MEDS: METFORMIN HCL 500MG TABLET PO SCH (09:00)
[2018-12-09] MEDS: PANTOPRAZOLE 40MG DR TABLET PO SCH (09:42)
[2018-12-09] MEDS: ENOXAPARIN 40MG/0.4ML SYR SUBCUT SCH ×2 (09:42→21:54)
[2018-12-09] MEDS: PREDNISONE 5MG TABLET PO SCH (09:42)
[2018-12-09] MEDS: ALLOPURINOL 100 MG TABLET PO SCH ×2 (09:42→18:23)
[2018-12-09 12:00] VITALS: BP 110/60
[2018-12-09] MEDS: METOCLOPRAMIDE HCL 10MG/2ML VIAL IV SCH (12:00)
[2018-12-09] MEDS: DICLOFENAC SODIUM 50MG EC TABLET PO SCH ×2 (12:10→21:54)
[2018-12-09] MEDS: PIOGLITAZONE 15MG TABLET PO SCH (13:37)
[2018-12-09 16:00] VITALS: BP 96/50
[2018-12-09 20:00] VITALS: BP 118/69
[2018-12-09] MEDS: SODIUM CHLORIDE 0.9% INJ 3ML FLUSH IVF SCH (21:56)
[2018-12-10] MEDS: SODIUM CHLORIDE 0.9% INJ 3ML FLUSH IVF SCH ×3 (06:00→20:59)
[2018-12-10] MEDS: BLOOD SUGAR DIAGNOSTIC STRIP TEST SCH ×4 (07:20→20:50)
[2018-12-10] MEDS: INSULIN LISPRO 100 UNITS/ML SUBCUT SCH ×4 (07:50→21:17)
[2018-12-10 08:00] VITALS: BP 106/58
[2018-12-10] MEDS: PIOGLITAZONE 15MG TABLET PO SCH (09:22)
[2018-12-10] MEDS: ALLOPURINOL 100 MG TABLET PO SCH ×2 (09:22→18:13)
[2018-12-10] MEDS: METFORMIN HCL 500MG TABLET PO SCH (09:22)
[2018-12-10] MEDS: PREDNISONE 5MG TABLET PO SCH (09:23)
[2018-12-10] MEDS: PANTOPRAZOLE 40MG DR TABLET PO SCH (09:23)
[2018-12-10] MEDS: ENOXAPARIN 40MG/0.4ML SYR SUBCUT SCH ×2 (09:24→20:50)
[2018-12-10] MEDS: DICLOFENAC SODIUM 50MG EC TABLET PO SCH ×2 (10:47→20:49)
[2018-12-10 12:00] VITALS: BP 87/41
[2018-12-10 16:00] VITALS: BP 92/52
[2018-12-10 20:00] VITALS: BP 92/41
[2018-12-10] MEDS ORDERED: DIPHENOXYLATE/ATROPINE 2.5/0.025MG TABLET PO PRN (22:30)
[2018-12-11] VITALS: BP 94/51
[2018-12-11] MEDS: BLOOD SUGAR DIAGNOSTIC STRIP TEST SCH ×4 (07:49→20:22)
[2018-12-11 08:03] VITALS: BP 113/61
[2018-12-11] MEDS: PIOGLITAZONE 15MG TABLET PO SCH (08:55)
[2018-12-11] MEDS: DICLOFENAC SODIUM 50MG EC TABLET PO SCH ×2 (08:55→20:20)
[2018-12-11] MEDS: ALLOPURINOL 100 MG TABLET PO SCH ×2 (08:55→17:29)
[2018-12-11] MEDS: ENOXAPARIN 40MG/0.4ML SYR SUBCUT SCH ×2 (08:55→20:21)
[2018-12-11] MEDS: PANTOPRAZOLE 40MG DR TABLET PO SCH (08:55)
[2018-12-11] MEDS: PREDNISONE 5MG TABLET PO SCH (08:55)
[2018-12-11] MEDS: METFORMIN HCL 500MG TABLET PO SCH (09:00)
[2018-12-11] MEDS: INSULIN LISPRO 100 UNITS/ML SUBCUT SCH ×4 (09:03→22:05)
[2018-12-11 12:00] VITALS: BP 113/61
[2018-12-11] MEDS: SODIUM CHLORIDE 0.9% INJ 3ML FLUSH IVF SCH ×2 (14:33→22:48)
[2018-12-11 16:00] VITALS: BP 132/70
[2018-12-11 20:00] VITALS: BP 99/47
[2018-12-12] VITALS: BP 121/69
[2018-12-12] MEDS ORDERED: TRAMADOL 50MG TABLET PO PRN (04:00)
[2018-12-12] MEDS: SODIUM CHLORIDE 0.9% INJ 3ML FLUSH IVF SCH ×2 (06:54→14:00)
[2018-12-12] MEDS: BLOOD SUGAR DIAGNOSTIC STRIP TEST SCH ×3 (06:54→17:20)
[2018-12-12 08:00] VITALS: BP 113/62
[2018-12-12] MEDS: PANTOPRAZOLE 40MG DR TABLET PO SCH ×2 (08:23→08:37)
[2018-12-12] MEDS: DICLOFENAC SODIUM 50MG EC TABLET PO SCH ×2 (08:23→08:37)
[2018-12-12] MEDS: PIOGLITAZONE 15MG TABLET PO SCH ×2 (08:23→08:37)
[2018-12-12] MEDS: PREDNISONE 5MG TABLET PO SCH ×2 (08:23→08:37)
[2018-12-12] MEDS: ALLOPURINOL 100 MG TABLET PO SCH ×3 (08:23→17:00)
[2018-12-12] MEDS: ENOXAPARIN 40MG/0.4ML SYR SUBCUT SCH (08:24)
[2018-12-12] MEDS: INSULIN LISPRO 100 UNITS/ML SUBCUT SCH ×3 (08:30→17:50)
[2018-12-12] MEDS: METFORMIN HCL 500MG TABLET PO SCH (08:36)
[2018-12-12] MEDS ORDERED: SODIUM CHLORIDE 0.45% 1,000 ML IV SCH (09:00)
[2018-12-12 11:56] LABS: BASOPHILS % 0.3 % (0.0-2.0); EOSINOPHILS % 4.7 % (0.0-5.0); HEMATOCRIT. 33.6 % (36.0-48.0); HEMOGLOBIN. 10.8 g/dL (12.0-16.0); LYMPHOCYTES % 25.8 % (20.0-50.0); MEAN CORPUSCULAR HEMOGLOBIN 28.8 pg (28.0-32.0); MEAN CORPUSCULAR VOLUME 89.4 fL (81.0-99.0); MEAN PLATELET VOLUME 7.6 fl (7.4-10.4); MONOCYTES % 9.4 % (2.0-8.0); NEUTROPHILS % 59.8 % (40.0-76.0); PLATELET 235 x1000/uL (130-400); RED BLOOD CELL COUNT 3.76 mill/uL (4.2-5.4); RED CELL DISTRIBUTION WIDTH 15.8 % (11.6-14.6)
[2018-12-12 12:04] LABS: CHLORIDE 112 mEq/L (98-107)
[2018-12-12 12:23] VITALS: BP 107/59
[2018-12-12 16:01] VITALS: BP 120/72
[2018-12-12 16:21] VITALS: BP 120/72
[2018-12-13] MEDS ORDERED: FAMOTIDINE 20MG TABLET PO SCH (09:00)
== END 2018-12-12 19:13 | DRG 207 ==
LOC: ER 13:29 → 6EST 16:40 → ENRESERV 18:34
PROVIDERS: ADMIT Family Medicine; ATTEND Family Medicine
PROC: 3E0U33Z Introduction of Anti-inflammatory into Joints, Percutaneous Approach (ICD-10-PCS; principal; 2018-12-05)
PROC: 0R9U3ZZ Drainage of Right Metacarpophalangeal Joint, Percutaneous Approach (ICD-10-PCS; 2018-12-05)
DX: I87.8 Other specified disorders of veins (principal); E11.51 Type 2 diabetes mellitus with diabetic peripheral angiopathy without gangrene; E11.42 Type 2 diabetes mellitus with diabetic polyneuropathy; K31.84 Gastroparesis; E66.01 Morbid (severe) obesity due to excess calories; L97.819 Non-pressure chronic ulcer of other part of right lower leg with unspecified severity; L97.829 Non-pressure chronic ulcer of other part of left lower leg with unspecified severity; G47.30 Sleep apnea, unspecified; L03.119 Cellulitis of unspecified part of limb; E78.5 Hyperlipidemia, unspecified; I10 Essential (primary) hypertension; M10.9 Gout, unspecified; G47.33 Obstructive sleep apnea (adult) (pediatric); E11.43 Type 2 diabetes mellitus with diabetic autonomic (poly)neuropathy; R26.81 Unsteadiness on feet; M19.90 Unspecified osteoarthritis, unspecified site; I87.2 Venous insufficiency (chronic) (peripheral); Z74.01 Bed confinement status; Z88.0 Allergy status to penicillin; Z68.43 Body mass index [BMI] 50.0-59.9, adult; Z79.899 Other long term (current) drug therapy; Z79.4 Long term (current) use of insulin; Z79.84 Long term (current) use of oral hypoglycemic drugs
CPT/HCPCS: 36415; 36600; 71045; 73130; 80048; 80061; 80305; 82375; 82805; 82962; 83880; 84550; 85651; 86141; 86431; 97110; 97163; 97166; 97530; 97535; 99285; A4565; A6261; C1893; J1030; J1650; J1815; J2405; J2765; J7512; A4315